=== PATIENT | male | born 1950 | race Two or more races ===

== ENCOUNTER 2020-11-08 09:00 | Outpatient (CLI) | payer MEDICARE, BC ==
[2020-11-08] MEDS ORDERED: LIDOCAINE SOLN 4% 50 ML BOTTLE ONE (09:32)
[2020-11-08] MEDS ORDERED: COLLAGENASE 5 GM TUBE UD TP ONE (10:06)
== END 2020-11-08 23:59 | disposition home health service (06) ==
LOC: WOU 09:00
PROVIDERS: ATTEND Podiatrist Foot & Ankle Surgery
DX: E11.621 Type 2 diabetes mellitus with foot ulcer (principal); L97.422 Non-pressure chronic ulcer of left heel and midfoot with fat layer exposed; L97.522 Non-pressure chronic ulcer of other part of left foot with fat layer exposed; E11.42 Type 2 diabetes mellitus with diabetic polyneuropathy; Z79.84 Long term (current) use of oral hypoglycemic drugs
CPT/HCPCS: 11042; 73630-TC; 87070-TC; 87075-TC

== ENCOUNTER 2020-11-09 08:42 | Outpatient (CLI) | payer MEDICARE, BC | END 2020-11-09 23:59 | disposition home or self-care (01) | LOC: US 08:42 | PROVIDERS: ATTEND Podiatrist Foot & Ankle Surgery | DX: M71.22 Synovial cyst of popliteal space [Baker], left knee (principal); E11.621 Type 2 diabetes mellitus with foot ulcer | CPT/HCPCS: 93970-TC ==

== ENCOUNTER 2020-11-18 08:30 | Outpatient (CLI) | payer MEDICARE, BC ==
[2020-11-18] MEDS ORDERED: LIDOCAINE HCL/MPF 1% 30 ML VIAL IJ ONE (09:09)
[2020-11-18] MEDS ORDERED: COLLAGENASE 5 GM TUBE UD TP ONE (10:14)
== END 2020-11-18 23:59 | disposition home health service (06) ==
LOC: WOU 08:30
PROVIDERS: ATTEND Podiatrist Foot & Ankle Surgery
DX: E11.621 Type 2 diabetes mellitus with foot ulcer (principal); L97.522 Non-pressure chronic ulcer of other part of left foot with fat layer exposed; L97.512 Non-pressure chronic ulcer of other part of right foot with fat layer exposed; L97.422 Non-pressure chronic ulcer of left heel and midfoot with fat layer exposed; E11.622 Type 2 diabetes mellitus with other skin ulcer; L97.312 Non-pressure chronic ulcer of right ankle with fat layer exposed; E11.42 Type 2 diabetes mellitus with diabetic polyneuropathy; Z79.84 Long term (current) use of oral hypoglycemic drugs
CPT/HCPCS: 11042; 87070; 87075; J3490; 87186-TC

== ENCOUNTER 2020-11-25 08:40 | Outpatient (CLI) | payer MEDICARE, BC ==
[2020-11-25] MEDS ORDERED: COLLAGENASE 5 GM TUBE UD TP ONE (09:20)
== END 2020-11-25 23:59 | disposition home health service (06) ==
LOC: WOU 08:40
PROVIDERS: ATTEND Podiatrist Foot & Ankle Surgery
DX: E11.621 Type 2 diabetes mellitus with foot ulcer (principal); L97.422 Non-pressure chronic ulcer of left heel and midfoot with fat layer exposed; L97.512 Non-pressure chronic ulcer of other part of right foot with fat layer exposed; E11.622 Type 2 diabetes mellitus with other skin ulcer; L97.312 Non-pressure chronic ulcer of right ankle with fat layer exposed; E11.42 Type 2 diabetes mellitus with diabetic polyneuropathy; Z79.84 Long term (current) use of oral hypoglycemic drugs
CPT/HCPCS: 11042

== ENCOUNTER 2020-12-02 08:30 | Outpatient (CLI) | payer MEDICARE, BC ==
[2020-12-02] MEDS ORDERED: COLLAGENASE 5 GM TUBE UD TP ONE (09:20)
== END 2020-12-02 23:59 | disposition home health service (06) ==
LOC: WOU 08:30
PROVIDERS: ATTEND Podiatrist Foot & Ankle Surgery
DX: E11.621 Type 2 diabetes mellitus with foot ulcer (principal); L97.422 Non-pressure chronic ulcer of left heel and midfoot with fat layer exposed; E11.622 Type 2 diabetes mellitus with other skin ulcer; L97.312 Non-pressure chronic ulcer of right ankle with fat layer exposed; Z79.84 Long term (current) use of oral hypoglycemic drugs; E11.42 Type 2 diabetes mellitus with diabetic polyneuropathy
CPT/HCPCS: 11042

== ENCOUNTER 2020-12-09 08:40 | Outpatient (CLI) | payer MEDICARE, BC ==
[2020-12-09] MEDS ORDERED: COLLAGENASE 5 GM TUBE UD TP ONE (09:12)
== END 2020-12-09 23:59 | disposition home health service (06) ==
LOC: WOU 08:40
PROVIDERS: ATTEND Podiatrist Foot & Ankle Surgery
DX: E11.621 Type 2 diabetes mellitus with foot ulcer (principal); L97.422 Non-pressure chronic ulcer of left heel and midfoot with fat layer exposed; E11.42 Type 2 diabetes mellitus with diabetic polyneuropathy; Z79.84 Long term (current) use of oral hypoglycemic drugs; E78.5 Hyperlipidemia, unspecified
CPT/HCPCS: 11042; A6209

== ENCOUNTER 2020-12-13 12:15 | Outpatient (CLI) | payer MEDICARE, BC | END 2020-12-13 23:59 | disposition home or self-care (01) | LOC: MRI 12:15 | PROVIDERS: ATTEND Podiatrist Foot & Ankle Surgery | DX: M19.072 Primary osteoarthritis, left ankle and foot (principal); E11.621 Type 2 diabetes mellitus with foot ulcer; M20.12 Hallux valgus (acquired), left foot; M79.89 Other specified soft tissue disorders; M25.775 Osteophyte, left foot | CPT/HCPCS: 73718-TC ==

== ENCOUNTER 2020-12-16 08:30 | Outpatient (CLI) | payer MEDICARE, BC ==
[2020-12-16] MEDS ORDERED: COLLAGENASE 5 GM TUBE UD TP ONE (09:12)
== END 2020-12-16 23:59 | disposition home health service (06) ==
LOC: WOU 08:30
PROVIDERS: ATTEND Podiatrist Foot & Ankle Surgery
DX: E11.621 Type 2 diabetes mellitus with foot ulcer (principal); L97.422 Non-pressure chronic ulcer of left heel and midfoot with fat layer exposed; E11.42 Type 2 diabetes mellitus with diabetic polyneuropathy; Z79.84 Long term (current) use of oral hypoglycemic drugs
CPT/HCPCS: 11042

== ENCOUNTER 2020-12-23 08:46 | Outpatient (CLI) | payer MEDICARE, BC ==
[2020-12-23] MEDS ORDERED: LIDOCAINE SOLN 4% 50 ML BOTTLE ONE (09:06)
[2020-12-23] MEDS ORDERED: COLLAGENASE 5 GM TUBE UD TP ONE (09:21)
== END 2020-12-23 23:59 | disposition home health service (06) ==
LOC: WOU 08:46
PROVIDERS: ATTEND Podiatrist Foot & Ankle Surgery
DX: E11.621 Type 2 diabetes mellitus with foot ulcer (principal); L97.422 Non-pressure chronic ulcer of left heel and midfoot with fat layer exposed; E11.42 Type 2 diabetes mellitus with diabetic polyneuropathy; Z79.84 Long term (current) use of oral hypoglycemic drugs
CPT/HCPCS: 11042

== ENCOUNTER 2020-12-30 08:40 | Outpatient (CLI) | payer MEDICARE, BC ==
[2020-12-30] MEDS ORDERED: COLLAGENASE 5 GM TUBE UD TP ONE (09:16)
== END 2020-12-30 23:59 | disposition home health service (06) ==
LOC: WOU 08:40
PROVIDERS: ATTEND Podiatrist Foot & Ankle Surgery
DX: E11.621 Type 2 diabetes mellitus with foot ulcer (principal); L97.422 Non-pressure chronic ulcer of left heel and midfoot with fat layer exposed; E11.42 Type 2 diabetes mellitus with diabetic polyneuropathy; Z79.84 Long term (current) use of oral hypoglycemic drugs
CPT/HCPCS: 11042

== ENCOUNTER → 2021-01-06 | Outpatient (CLI) | payer MEDICARE, BC ==
[~2021-01-06] MED LIST: COLLAGENASE 5 GM TUBE UD TP ONE
== END | disposition home health service (06) ==
LOC: WOU 08:45
PROVIDERS: ATTEND Podiatrist Foot & Ankle Surgery
DX: E11.621 Type 2 diabetes mellitus with foot ulcer (principal); L97.422 Non-pressure chronic ulcer of left heel and midfoot with fat layer exposed; L97.522 Non-pressure chronic ulcer of other part of left foot with fat layer exposed; E11.42 Type 2 diabetes mellitus with diabetic polyneuropathy; Z79.84 Long term (current) use of oral hypoglycemic drugs
CPT/HCPCS: 11042

== ENCOUNTER 2021-01-20 08:40 | Outpatient (CLI) | payer MEDICARE, BC ==
[2021-01-20] MEDS ORDERED: LIDOCAINE SOLN 4% 50 ML BOTTLE ONE (08:41)
== END 2021-01-20 23:59 | disposition home health service (06) ==
LOC: WOU 08:40
PROVIDERS: ATTEND Podiatrist Foot & Ankle Surgery
DX: E11.621 Type 2 diabetes mellitus with foot ulcer (principal); L97.522 Non-pressure chronic ulcer of other part of left foot with fat layer exposed; L97.422 Non-pressure chronic ulcer of left heel and midfoot with fat layer exposed; L97.512 Non-pressure chronic ulcer of other part of right foot with fat layer exposed; E11.42 Type 2 diabetes mellitus with diabetic polyneuropathy; Z79.84 Long term (current) use of oral hypoglycemic drugs
CPT/HCPCS: 11042